=== PATIENT | male | born 1985 | race Caucasian/White ===

== ENCOUNTER 2022-02-04 03:12 | Emergency (ER) | payer BC ==
[~2022-02-04] VITALS: Ht 172.7 cm; Wt 95.3 kg
[2022-02-04 03:29] VITALS: BP_SYST 147
--- NOTE | 2022-02-04 03:34 | NUR ---
PATIENT STATES HE HAS BEEN INCREASINGLY DIZZY OVER ONE WEEK, HAS NOT SEEN HIS PMD FOR THIS. ALSO STATES HE WAS DIAGNOSED WITH DIABETES BUT DOES NOT TAKE MEDICATIONS OR CHECK HIS BLOOD SUGAR AND HAS NOT DONE SO IN OVER TWO MONTHS.
--- NOTE | 2022-02-04 03:55 | NUR ---
PATIENT TO BED 7 FOR EVAL, REPORT GIVEN TO MARIANELA FRY.
--- NOTE | 2022-02-04 04:00 | NUR ---
Patient A/Ox4, VSS, ambulatory, resp even and unlabored. Patient resting in bed with side rails raised. Nad noted at this time.
--- NOTE | 2022-02-04 04:05 | NUR ---
CAMILLE Tobias at bedside.
[2022-02-04 04:47] LABS: BASOPHILS # (AUTO) 0.1 K/uL (0.0-0.2); BASOPHILS % (AUTO) 1.3 % (0.0-2.0); EOSINOPHILS # (AUTO) 0.2 K/uL (0.0-0.4); EOSINOPHILS % (AUTO) 2.5 % (0.0-4.0); HEMATOCRIT 39.5 % (36-54); HEMOGLOBIN 14.2 g/dL (14.0-18.0); LYMPHOCYTES # (AUTO) 1.2 K/uL (1.0-5.5); LYMPHOCYTES % (AUTO) 16.2 % (20.5-51.5); MEAN CORPUSCULAR HEMOGLOBIN 32 pg (27-31); MEAN CORPUSCULAR HGB CONC 36 % (32-36); MEAN CORPUSCULAR VOLUME 88 fL (79.0-98.0); MONOCYTES # (AUTO) 0.4 K/uL (0.0-1.0); MONOCYTES % (AUTO) 5.2 % (1.7-9.3); NEUTROPHILS # (AUTO) 5.3 K/uL (1.8-7.7); NEUTROPHILS % (AUTO) 74.8 % (40.0-70.0); PLATELET COUNT (AUTO) 239 K/uL (130-430); RED BLOOD CELL COUNT(AUTO) 4.48 MIL/uL (4.2-6.2); RED CELL DISTRIBUTION WIDTH 12.6 % (9.0-15.0); WHITE BLOOD COUNT (AUTO) 7.1 K/uL (4.8-10.8)
--- NOTE | 2022-02-04 05:00 | NUR ---
Patient sitting upright and drawing in bed. Nad noted at this time.
[2022-02-04] MEDS ORDERED: ZOLP12.555 PO (05:17)
--- NOTE | 2022-02-04 05:30 | NUR ---
Patient given written and verbal discharge instructions and verbalizes understanding. ER MD discussed with patient the results and treatment provided. Patient in stable condition. ID arm band removed. Rx of Zolpidem tatrate given. Patient educated on pain management and to follow up with PMD. Pain Scale 0/10. Opportunity for questions provided and answered. Medication side effect fact sheet provided. Patient in stable condition upon discharge.
[2022-02-04 05:32] VITALS: BP_SYST 125
[2022-02-04 06:01] LABS: ANION GAP 3 (5-15); CALCIUM 8.9 mg/dL (8.4-11.0); CHLORIDE 104 mmol/L (98-107); CREATININE 1.05 mg/dL (0.55-1.30); GLUCOSE 93 mg/dL (70-99); POTASSIUM 3.5 mmol/L (3.5-5.1); UREA NITROGEN, BLOOD 16 mg/dL (8-21)
[2022-02-04 06:06] LABS: GFR AFRICAN AMERICAN 102 mL/min (>90)
[2022-02-04 06:12] LABS: ALANINE AMINOTRANSFERASE 30 U/L (12-78); ALBUMIN 4.2 g/dL (3.4-4.8); ASPARTATE AMINOTRANSFERASE 19 U/L (10-37); TOTAL BILIRUBIN 0.3 mg/dL (0.0-1.0)
== END 2022-02-04 05:30 | disposition home or self-care (01) ==
LOC: SED 03:12
DX: R42 Dizziness and giddiness (principal); G47.00 Insomnia, unspecified; Z79.899 Other long term (current) drug therapy
CPT/HCPCS: 36415; 80053; 82962; 83880; 84484; 85025; 93005; 99284

== ENCOUNTER 2022-03-25 14:56 | Emergency (ER) | payer OTHER, BC ==
[~2022-03-25] VITALS: Ht 172.7 cm; Wt 93.0 kg
[~2022-03-25 14:56] MED LIST: ZOLP12.555 PO
[2022-03-25 15:46] VITALS: BP_SYST 151
--- NOTE | 2022-03-25 15:53 | NUR ---
Patient triaged and placed in waiting room. VSS and patient appears in no acute distress at this time. Accompanied by SELF, awaiting available bed, and MD notified of need for MSE.
--- NOTE | 2022-03-25 16:30 | NUR ---
Pt to radiology for xray exam
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
[2022-03-25] MEDS ORDERED: SOM350 PO (17:43)
[2022-03-25] MEDS ORDERED: IBUP-1971 PO (17:43)
[2022-03-25] MEDS ORDERED: MORPHINE 4 MG INJ. 4 MG/ML VIAL IM ONE (18:00)
[2022-03-25] MEDS ORDERED: IBUPROFEN 800 MG TABLET ONE (18:42)
[2022-03-25] MEDS ORDERED: IBUPROFEN 800 MG TABLET PO ONE (18:45)
[2022-03-25 19:33] VITALS: BP_SYST 151
--- NOTE | 2022-03-25 19:33 | NUR ---
Patient given written and verbal discharge instructions and verbalizes understanding. ER MD discussed with patient the results and treatment provided. Patient in stable condition. ID arm band removed. Rx of soma and ibuprofen given. Patient educated on pain management and to follow up with PMD. Opportunity for questions provided and answered. Medication side effect fact sheet provided.
== END 2022-03-25 19:33 | disposition home or self-care (01) ==
LOC: SED 14:56
DX: S13.4XXA Sprain of ligaments of cervical spine, initial encounter (principal); S39.012A Strain of muscle, fascia and tendon of lower back, initial encounter; S09.90XA Unspecified injury of head, initial encounter; Z79.899 Other long term (current) drug therapy; V28.91XA Unspecified electric (assisted) bicycle rider injured in noncollision transport accident in traffic accident, initial encounter; Y93.89 Activity, other specified; Y92.89 Other specified places as the place of occurrence of the external cause; Y99.8 Other external cause status
CPT/HCPCS: 99284; 70450; 71045; 72040; 72100; 72125; 76376; 96372; J2270